=== PATIENT | male | born 1965 | race Caucasian/White ===

== ENCOUNTER 2018-10-14 01:48 | Emergency (ER) | payer MEDICAID ==
[~2018-10-14] VITALS: Wt 74.1 kg
[2018-10-14] MEDS ORDERED: KETOROLAC 15 MG INJ IV STA (03:41)
[2018-10-14] MEDS ORDERED: SOD CHLORIDE 0.9% 1,000 ML IV STA (03:41)
[2018-10-14] MEDS ORDERED: ONDANSETRON 4 MG INJ IV STA (03:41)
[2018-10-14] MEDS ORDERED: DIPHENHYDRAMINE 50 MG INJ IV ONE (04:00)
--- NOTE | 2018-10-14 04:13 | ERD ---
ER Documentation Chief Complaint Chief Complaint BILAT LEG WEAKNESS, L ARM WEAK, VOMITING X'S 1 DAY HPI 53-year-old man complains of dizziness, tinnitus, vomiting, and head spinning sensation. His symptoms began about 6:30 PM today he denies headache, no slurred speech, no blurry vision, no chest pain or shortness of breath. He s tates he has had similar symptoms in the past. He denies any obvious precipitating or alleviating factors states he feels better when he lays still and does not move his head. ROS All systems reviewed and are negative except as per history of present illness. Allergies Allergies: Coded Allergies: No Known Allergy (Unverified , 10/14/18) PMhx/Soc Hx Cardiac Disorders: Yes (htn) Hx Alcohol Use: No Hx Substance Use: No Hx Tobacco Use: No Smoking Status: Never smoker FmHx Family History: No diabetes Physical Exam Vitals Vital Signs Date Temp Pulse Resp B/P (MAP) Pulse Ox O2 O2 Flow FiO2 Time Delivery Rate 10/14/18 96.7 66 18 140/91 99 Room Air 03:17 (107) 10/14/18 96.7 69 18 148/92 99 01:56 (110) Physical Exam Const: No acute distress, afebrile HEENT: Normocephalic atraumatic, no vertigo or rotary nystagmus, pupils equal round reactive to light, no ptosis Resp: Clear to auscultation bilaterally Cardio: Regular rate and rhythm, no murmurs Abd: Soft, non tender, non distended. Normal bowel sounds Skin: No petechiae or rashes Back: No midline or flank tenderness Ext: No cyanosis, or edema Neur: Awake and alert x3, no focal deficits or facial asymmetry, strength 5/5 in the upper and lower extremities bilaterally Psych: Normal Mood and Affect Result Diagram: 10/14/18 0322 10/14/18 0322 Results 24 hrs Laboratory Tests Test 10/14/18 03:22 White Blood Count 8.5 10^3/ul Red Blood Count 4.98 10^6/ul Hemoglobin 15.4 g/dl Hematocrit 45.6 % Mean Corpuscular Volume 91.6 fl Mean Corpuscular Hemoglobin 30.9 pg Mean Corpuscular Hemoglobin Concent 33.8 g/dl Red Cell Distribution Width 12.5 % Platelet Count 248 10^3/UL Mean Platelet Volume 10.3 fl Immature Granulocytes % 0.400 % Neutrophils % 73.2 % Lymphocytes % 17.7 % Monocytes % 8.0 % Eosinophils % 0.5 % Basophils % 0.2 % Nucleated Red Blood Cells % 0.0 /100WBC Immature Granulocytes # 0.030 10^3/ul Neutrophils # 6.2 10^3/ul Lymphocytes # 1.5 10^3/ul Monocytes # 0.7 10^3/ul Eosinophils # 0.0 10^3/ul Basophils # 0.0 10^3/ul Nucleated Red Blood Cells # 0.0 10^3/ul Sodium Level 143 mmol/L Potassium Level 4.0 mmol/L Chloride Level 107 mmol/L Carbon Dioxide Level 26 mmol/L Anion Gap 10 Blood Urea Nitrogen 15 mg/dl Creatinine 0.61 mg/dl Est Glomerular Filtrat Rate mL/min > 60 mL/min Glucose Level 121 mg/dl Calcium Level 9.2 mg/dl Total Bilirubin 0.7 mg/dl Direct Bilirubin 0.00 mg/dl Indirect Bilirubin 0.7 mg/dl Aspartate Amino Transf (AST/SGOT) 39 IU/L Alanine Aminotransferase (ALT/SGPT) 44 IU/L Alkaline Phosphatase 74 IU/L Troponin I < 0.012 ng/ml Total Protein 7.8 g/dl Albumin 4.5 g/dl Globulin 3.30 g/dl Albumin/Globulin Ratio 1.36 Lipase 88 U/L Current Medications Medications Dose Sig/Nadya Start Time Status Last (Trade) Ordered Route PRN Stop Time Admin Dose Reason Admin Sodium 1,000 ml @ Q1H STAT 10/14/18 DC 10/14/18 Chloride 1,000 mls/hr IV 03:41 04:16 10/14/18 04:40 Ondansetron 4 mg ONCE STAT 10/14/18 DC 10/14/18 HCl (Zofran IV 03:41 04:24 Inj) 10/14/18 03:42 Ketorolac 15 mg ONCE STAT 10/14/18 DC 10/14/18 Tromethamine IV 03:41 04:25 (Toradol) 10/14/18 03:42 50 mg ONCE ONCE 10/14/18 DC 10/14/18 Diphenhydrami IV 04:00 04:24 ne HCl 10/14/18 04:01 (Benadryl) Procedures/MDM IV line was established patient was placed on front desk monitor rhythm strip revealed a sinus rhythm at about 80 bpm with upright P and T waves. Patient was afebrile I administered 1 L normal saline IV, diphenhydramine 50 mg IV x1, Toradol 15 mg IV, and Zofran 4 mg IV for his symptoms. EKG performed, read by me revealed a sinus bradycardia 58 bpm, normal axis, right ventricular conduction delay with a QRS duration 110 ms, no concerning ST elevations or depressions noted Patient's vital signs remained normal and his symptoms did improve after above therapy. CBC and electrolytes were normal, liver function tests were normal, troponin was negative I repeated the patient's neurologic exam after therapy and just prior to discharge and it remains normal, he has no facial asymmetry or focal deficits, no weakness in his upper extremities and no gait ataxia. Differential diagnoses considered, included but not limited to acute coronary syndrome, pulmonary embolism, aortic dissection, abdominal aortic aneurysm, sepsis, stroke, meningitis, encephalitis, pneumonia, appendicitis, cholecystitis, bowel obstruction, pyelonephritis, nephrolithiasis, cystitis, as well as metabolic, hematologic, and electrolyte abnormalities. As well as abscess, cellulitis, fractures, and dislocations. Patient feels much better at this time, and vital signs are normal, symptoms have improved. I did give strict instructions to return to the ED if symptoms continue or worsen, patient will otherwise follow-up with primary care physician. Patient understood instructions and agreed to plan. Disclaimer: Inadvertent spelling and grammatical errors are likely due to EHR/dictation software use and do not reflect on the overall quality of patient care. Also, please note that the electronic time recorded on this note does not necessarily reflect the actual time of the patient encounter. Departure Diagnosis: Primary Impression: BPPV (benign paroxysmal positional vertigo) Laterality: bilateral Qualified Codes: H81.13 - Benign paroxysmal vertigo, bilateral Additional Impression: Tinnitus Laterality: bilateral Qualified Codes: H93.13 - Tinnitus, bilateral Condition: Good SATINDER HERNDON MD Oct 14, 2018 04:13
[2018-10-14] MEDS ORDERED: ONDA4TAB8 PO (04:57)
[2018-10-14] MEDS ORDERED: MECL12.574 PO (04:57)
[2018-10-14 05:51] VITALS: BP 138/87; PULSE 70; RESP 19
== END 2018-10-14 05:52 | disposition home or self-care (01) ==
LOC: E/R 01:48
DX: H81.13 Benign paroxysmal vertigo, bilateral (principal); H93.13 Tinnitus, bilateral; I10 Essential (primary) hypertension
CPT/HCPCS: 36415; 80053; 83690; 84484; 85025; 93005; 96361; 96374; 96375; J1200; J1885; J2405; J7030; Z7502; Z7610